=== PATIENT | female | born 1985 | race Caucasian/White ===

== ENCOUNTER 2018-05-13 09:57 | Emergency (ER) | payer MEDICAID ==
[~2018-05-13] VITALS: Ht 154.9 cm; Wt 55.0 kg
[2018-05-13] MEDS ORDERED: SODIUM CHLORIDE 0.9% 1,000 ML IV ONE ×2 (11:04→13:15)
[2018-05-13] MEDS ORDERED: ONDANSETRON HCL 4MG/2ML INJ IV STA (11:04)
[2018-05-13] MEDS ORDERED: KETOROLAC 30MG/ML VIAL IV STA (11:04)
[2018-05-13 11:20] LABS: HEMATOCRIT. 45.6 % (36.0-48.0); HEMOGLOBIN. 14.9 g/dL (12.0-16.0); MEAN CORPUSCULAR HEMOGLOBIN 25.3 pg (28.0-32.0); MEAN CORPUSCULAR VOLUME 77.5 fL (81.0-99.0); MEAN PLATELET VOLUME 8.1 fl (7.4-10.4); PLATELET 374 x1000/uL (130-400); RED BLOOD CELL COUNT 5.88 mill/uL (4.2-5.4)
[2018-05-13 11:26] LABS: CHLORIDE 100 mEq/L (98-107)
[2018-05-13 11:27] LABS: CLARITY URINE CLEAR (CLEAR); COLOR URINE ORANGE (YELLOW); KETONES URINE 3+ (NEGATIVE); LEUKOCYTE ESTERASE URINE NEGATIVE (NEGATIVE); NITRITE URINE NEGATIVE (NEGATIVE); OCCULT BLOOD URINE NEGATIVE (NEGATIVE); PROTEIN URINE NEGATIVE (NEGATIVE); SPECIFIC GRAVITY URINE 1.029 (1.005-1.030); UROBILINOGEN URINE 0.2 E.U./dL (0.2-1.0)
[2018-05-13 11:48] LABS: PLATELET ESTIMATE NORMAL
[2018-05-13] MEDS ORDERED: INSULIN REGULAR (HUMULIN R) 300UNITS/3ML SUBCUT ONE (13:15)
[2018-05-13 15:30] VITALS: BP 128/74
== END 2018-05-13 15:44 | disposition home or self-care (01) ==
LOC: ER 09:57
DX: R10.31 Right lower quadrant pain (principal); E11.65 Type 2 diabetes mellitus with hyperglycemia
CPT/HCPCS: 36415; 74176; 80053; 81003; 81025; 85025; 96361; 96372; 96374; 96375; 99284; J1815; J1885; J2405; J7030